=== PATIENT | female | born 1975 | race Caucasian/White ===

== ENCOUNTER 2016-08-16 11:58 | Emergency (ER) | payer SELFPAY ==
[~2016-08-16] VITALS: Wt 98.5 kg
[2016-08-16] MEDS ORDERED: traMADol 50 MG TAB PO ONE (13:30)
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
--- NOTE | 2016-08-16 14:21 | RADRPT ---
PROCEDURE: CR left shoulder CLINICAL INDICATION: Shoulder pain TECHNIQUE: 3 views performed COMPARISON: No comparison available. FINDINGS: There is normal mineralization, architecture and alignment.No fracture or osseous lesion is identifi ed.The glenohumeral and acromioclavicular joints are unremarkable. The soft tissues are unremarkable . IMPRESSION: Unremarkable examination. RPTAT: HGDB .Chriss Reyes MD, MD Date Time Electronically viewed and signed by .Chriss Reyes MD, MD on 08/16/2016 14:21 .B/
[2016-08-16] MEDS ORDERED: TRAM50TA2 PO (14:38)
[2016-08-16] MEDS ORDERED: NAPR-260 PO (14:39)
== END 2016-08-16 14:50 | disposition home or self-care (01) ==
LOC: FTE 11:58
DX: S19.9XXA Unspecified injury of neck, initial encounter (principal); S49.92XA Unspecified injury of left shoulder and upper arm, initial encounter; S09.90XA Unspecified injury of head, initial encounter; S89.91XA Unspecified injury of right lower leg, initial encounter; S89.92XA Unspecified injury of left lower leg, initial encounter; V49.40XA Driver injured in collision with unspecified motor vehicles in traffic accident, initial encounter
CPT/HCPCS: 72040; 73030